=== PATIENT | male | born 1995 | race Caucasian/White ===

== ENCOUNTER 2024-01-07 17:46 | Emergency (ER) | payer SELFPAY ==
[2024-01-07 17:47] VITALS: BP 193/122; PULSE 114; RESP 20; TEMP 36.6; O2SAT 97; BMI 38.0
--- NOTE | 2024-01-07 18:00 | EX.ED.VIS.PS ---
HPI HPI - Psych History of Present Illness Chief Complaint: Suicidal Informant: patient and parent Onset/Context/Timing Onset: Month(s) Context: Gradual Onset Timing: Waxes and wanes Associated Symptoms Associated Symptoms - Psych: Positive for Depressed, Change in Eating, Change in sleeping, Decreased Interest and Suicidal Thoughts; Negative for Paranoia, Visual Hallucinations or Auditory Hallucinations Specific plan (suicidal thought): Shooting himself with a gun, driving really fast and driving off the road [facility] Medical History Depression Home Medications ?Medication ?Instructions ?Recorded ?Last Taken ?Type bupropion HCl 150 mg 24 hr tablet, 300 mg PO QHS 01/07/24 01/06/24 History extended release escitalopram oxalate 10 mg tablet 10 mg PO DAILY 01/07/24 01/06/24 History hydroxyzine HCl 25 mg tablet 25 mg PO QHS PRN PRN anxiety 01/07/24 12/31/23 History lisinopril 20 mg tablet 20 mg PO DAILY 01/07/24 01/06/24 History metformin 500 mg tablet 500 mg PO BID 01/07/24 01/06/24 History omeprazole 20 mg capsule,delayed 20 mg PO DAILY 01/07/24 01/06/24 History release rosuvastatin 10 mg tablet 10 mg PO DAILY 01/07/24 01/06/24 History Allergy/AdvReac Type Severity Reaction Status Date / Time No Known Allergies Allergy Verified 01/07/24 17:55 Surgical History Hx of tonsillectomy Social History (Updated 01/07/24 @ 18:[address] Matthew Leary DO) Smoking Status: Current every day smoker tobacco type: cigarettes substance use type: marijuana ROS ROS ED Constitutional Constitutional ED: Denies chills or fever(s) Eyes Eyes: Reports blurry vision; Denies diplopia ENT ENT ED: Denies rhinorrhea or sore throat Cardiovascular Cardiovascular: Denies chest pain or palpitations Respiratory/Chest Respiratory/Chest: Denies cough or dyspnea Gastrointestinal Gastrointestinal: Denies nausea or vomiting Genitourinary Genitourinary ED: Denies dysuria or hematuria Musculoskeletal Musculoskeletal: Denies back pain or neck pain Integumentary Reports rash; Denies abscess Neurologic Neurologic: Denies headache(s) or weakness Allergic/Immunologic Allergic/Immunologic ED: Denies mouth swelling or urticaria EXAM Physical Exam Const Vital Signs: 01/07/24 17:47 01/07/24 19:24 Temperature 97.8 F Temperature Source Temporal Pulse Rate 114 H 78 Respiratory Rate 20 H 16 Blood Pressure 193/122 H 156/97 H Blood Pressure Mean 145 116 Pulse Ox 97 98 Oxygen Delivery Method Room Air Positive well nourished and well developed General Appearance ED: well developed and NAD HEENT Reports moist mucous membranes Resp normal respiratory effort and clear to auscultation bilaterally Cardio Rate: regular rate Rhythm: regular rhythm GI non-tender and non-distended Palpation: soft Neuro oriented x3, CN's II-XII intact bilaterally and no sensory deficits noted [place] Coma Scale: document GCS findings Spontaneous Obeys Commands Oriented 15 Sensorium / Orientation: alert Motor Exam: strength 5/5 throughout Psych mental status grossly normal and cooperative Appearance: grossly normal Activity / Motor Behavior: appropriate eye contact Speech: normal speech Mood & Affect: depressed Thought Content: suicidality, No delusion(s) and No hallucination(s) Memory / Cognition: memory grossly intact MDM MDM MDM Narrative Medical decision making narrative: Medical screening labs will be obtained. CBC will be obtained to assess for leukocytosis and anemia. Basic metabolic profile will be obtained to assess for electrolyte abnormality and renal function. Serum alcohol level will be obtained to assess for alcohol intoxication. Urine tox screen will be obtained to assess for substance abuse. Lab Data Attestation: I reviewed the patient's lab results. Lab results narrative: CBC was reviewed and was within normal limits. Basic metabolic profile was reviewed and was within normal limits. Serum alcohol level was reviewed and was normal at 5. Urine tox screen was reviewed and was positive for MDMA and cannabinoids. Labs: Laboratory Results - last 24 hr 01/07/24 18:11 WBC 10.1 RBC 5.96 Hgb 16.6 H Hct 50.9 MCV 85.4 MCH 27.9 MCHC 32.6 RDW Std Deviation 40.1 RDW Coeff of Mariella 13.1 Plt Count 269 MPV 10.1 Immature Gran % (Auto) 0.500 Neut % (Auto) 60.1 Lymph % (Auto) 24.4 Nobles % (Auto) 7.0 Eos % (Auto) 7.5 H Baso % (Auto) 0.5 Absolute Neuts (auto) 6.1 Absolute Lymphs (auto) 2.47 Nucleated RBC % 0 Sodium 139 Potassium 3.9 Chloride 107 Carbon Dioxide 24.0 Anion Gap 8 BUN 10 Creatinine 1.14 Estim Creat Clear Calc 131.42 Est GFR (MDRD) Af Amer 100 Est GFR (MDRD) Non-Af 82 BUN/Creatinine Ratio 8.8 L Glucose 193 H Calcium 9.6 Urine Opiates Screen NEGATIVE Urine Methadone Screen NEGATIVE Ur Barbiturates Screen NEGATIVE Ur Phencyclidine Scrn NEGATIVE Ur Amphetamines Screen NEGATIVE MDMA (Ecstasy) Screen POSITIVE H U Benzodiazepines Scrn NEGATIVE Urine Cocaine Screen NEGATIVE U Cannabinoids Screen POSITIVE H Ur Drug Screen Comment Ethyl Alcohol 5.0 Management Discussion w/another healthcare provider: Behavioral health Treatment and Re-Evaluation Narrative: Suicide precautions were maintained. Patient was given a nicotine patch. Patient is medically cleared for crisis evaluation. Case was discussed with crisis counselor. She evaluated the patient. She felt that the patient could be safety plan at home. She stated that the parents have all of the guns locked up in a safe and he does not have access to them. She stated that the patient told her that his suicidal ideations are fleeting. She will arrange for outpatient follow-up. She will also arrange for her an appointment with a psychiatrist. Patient and family understand and are agreeable with the plan. All questions were answered. Discharge Plan Triage Chief Complaint: Suicidal ED Provider: Matthew Leary Dx/Rx/DC Orders Clinical Impression: Depression, Suicidal ideations Instructions: CONTRACT, No Harm, ED Depression Prescriptions: No Action bupropion HCl 150 mg tablet extended release 24 hr 300 mg PO QHS hydroxyzine HCl 25 mg tablet 25 mg PO QHS PRN PRN (Reason: anxiety) escitalopram oxalate 10 mg tablet 10 mg PO DAILY metformin 500 mg tablet 500 mg PO BID lisinopril 20 mg tablet 20 mg PO DAILY omeprazole 20 mg capsule,delayed release(DR/EC) 20 mg PO DAILY rosuvastatin 10 mg tablet 10 mg PO DAILY Primary Care Provider: Damari Kenyon NP Referrals: Counseling,Center [Group of Physicians] - 3-5 Days Damari Kenyon NP, [employer] [Primary Care Provider] - Print Language: Sinhala Disposition Disposition: Home, Self Care
[2024-01-07 18:35] LABS: Absolute Lymphocyte Count 2.47 X10^3/uL (0.83-4.51); Absolute Neutrophil Count 6.1 X10^3/uL (2.0-7.7); Basophil# 0.05 X10^3/uL; Basophil% 0.5 % (0-1); Eosinophil# 0.76 X10^3/uL; Eosinophils% 7.5 % (0-5); Hematocrit 50.9 % (40-54); Hemoglobin 16.6 g/dL (13.0-16.5); Lymphocyte # 2.47 X10^3/ul (0.83-4.51); Lymphocyte % 24.4 % (19-41); Mean Corp Hgb Conc 32.6 g/dL (32-36); Mean Corpuscular Hgb 27.9 pg (27.0-32.0); Mean Corpuscular Volume 85.4 fL (80-94); Mean Platelet Vol. 10.1 fl (6.2-12.0); Monocyte# 0.71 X10^3/uL; NRBC Flagged by Analyzer 0 % (0-5); Neutrophil # 6.08 X10^3/uL (2.7-7.7); Neutrophil % 60.1 % (47-70); Platelet Count 269 K/mm3 (150-450); RBC Distribution Width CV 13.1 % (11.6-14.6); RBC Distribution Width SD 40.1 fl (35.1-43.9); Red Blood Count 5.96 M/mm3 (4.6-6.2); White Blood Count 10.1 K/mm3 (4.4-11.0)
[2024-01-07 19:10] LABS: Anion Gap 8 (5-15); BUN 10 mg/dL (7-18); BUN/Creat Ratio 8.8 RATIO (10-20); Calcium,Total 9.6 mg/dL (8.5-10.1); Chloride 107 mmol/L (98-107); Creatinine, Serum 1.14 mg/dL (0.70-1.30); EST Glomerular Filtration Rate 82 mL/min (>60); Est Glom Filt Rate - Afr Amer 100 mL/min (>60); Estimated Creatinine Clearance 131.42 ml/min; Glucose 193 mg/dL (74-106); Potassium 3.9 mmol/L (3.5-5.1); Sodium Level 139 mmol/L (136-145)
[2024-01-07 19:24] VITALS: BP 156/97; PULSE 78; RESP 16; O2SAT 98
[2024-01-07 19:30] LABS: Amphetamine Urine VISTA NEGATIVE (<1000 ng/mL); Barbiturate Urine VISTA NEGATIVE (< 200 ng/mL); Benzodiazepine Urine VISTA NEGATIVE (< 200 ng/mL); Cocaine Urine VISTA NEGATIVE (< 300 ng/mL); Ecstacy Urine VISTA POSITIVE (< 500 ng/mL); Methadone Urine VISTA NEGATIVE (< 300 ng/mL); PCP Urine VISTA NEGATIVE (< 25 ng/mL); THC Urine VISTA POSITIVE (< 50 ng/mL); Vista UDS pH Range 6
[2024-01-07 22:17] VITALS: BP 172/77; PULSE 81; RESP 15; TEMP 36.7; O2SAT 98
== END 2024-01-07 22:44 | disposition home or self-care (01) ==
PROVIDERS: Emergency Provider Emergency Medicine; PCP Registered Nurse; Visit Provider Emergency Medicine
DX: F32.A Depression, unspecified (principal); R45.851 Suicidal ideations; F17.210 Nicotine dependence, cigarettes, uncomplicated; Z79.84 Long term (current) use of oral hypoglycemic drugs; Z79.899 Other long term (current) drug therapy
CPT/HCPCS: 80048; 80307; 82077; 85025; 99285